=== PATIENT | female | born 1990 | race Caucasian/White ===

== ENCOUNTER 2023-06-07 08:38 | Emergency (ER) | payer OTHER ==
[2023-06-07 08:51] VITALS: BP 114/68; PULSE 78; RESP 17; TEMP 98.4; BMI 24.4
[2023-06-07] MEDS ORDERED: KETOROLAC TROMETHAMINE 30 MG/1 ML VIAL ONE (09:20)
[2023-06-07] MEDS ORDERED: ACETAMINOPHEN 325 MG TABLET (FP) ONE (09:20)
[2023-06-07] MEDS: KETOROLAC TROMETHAMINE 30 MG/1 ML VIAL IM ONE (09:25)
[2023-06-07] MEDS: ACETAMINOPHEN 325 MG TABLET (FP) PO ONE (09:26)
== END 2023-06-07 10:14 | disposition home or self-care (01) ==
LOC: JERFT 08:38
PROC: 3E0233Z Introduction of Anti-inflammatory into Muscle, Percutaneous Approach (ICD-10-PCS; principal; 2023-06-07)
DX: S09.90XA Unspecified injury of head, initial encounter (principal); M54.2 Cervicalgia; W18.2XXA Fall in (into) shower or empty bathtub, initial encounter
CPT/HCPCS: 99284-25

== ENCOUNTER 2023-06-10 20:58 | Emergency (ER) | payer OTHER ==
[2023-06-10 21:05] VITALS: BP 130/73; PULSE 79; RESP 20; TEMP 97.8; BMI 22.4
[2023-06-10] MEDS ORDERED: ACETAMINOPHEN 500 MG TABLET (FP) ONE (22:11)
[2023-06-10] MEDS: ACETAMINOPHEN 500 MG TABLET (FP) PO ONE (22:23)
[2023-06-11] MEDS: IBUPROFEN 600 MG TABLET (FP) PO ONE (00:52)
[2023-06-11] MEDS: LIDOCAINE 4% PATCH TP ONE (00:52)
[2023-06-11] MEDS ORDERED: IBUPROFEN 600 MG TABLET (FP) PO ONE (01:07)
[2023-06-11] MEDS ORDERED: LIDOCAINE 4% PATCH TP ONE (01:07)
[2023-06-11] MEDS ORDERED: LIDOCAINE PATCH REMOVAL MC SCH (22:00)
== END 2023-06-11 01:23 | disposition home or self-care (01) ==
LOC: JER 20:58
DX: S06.0X0A Concussion without loss of consciousness, initial encounter (principal); R68.84 Jaw pain; M54.2 Cervicalgia; W01.198A Fall on same level from slipping, tripping and stumbling with subsequent striking against other object, initial encounter; Y93.E1 Activity, personal bathing and showering
CPT/HCPCS: 70450-TC; 70486-TC; 72125-TC; 84703; 99284-25

== ENCOUNTER 2024-03-04 12:58 | Emergency (ER) | payer OTHER ==
[2024-03-04 13:08] VITALS: BP 121/63; PULSE 86; RESP 19; TEMP 99; BMI 22.8
== END 2024-03-04 15:14 | disposition home or self-care (01) ==
LOC: JERFT 12:58
DX: J10.1 Influenza due to other identified influenza virus with other respiratory manifestations (principal); J06.9 Acute upper respiratory infection, unspecified; R09.81 Nasal congestion; R05.9 Cough, unspecified; R50.9 Fever, unspecified; Z20.822 Contact with and (suspected) exposure to COVID-19
CPT/HCPCS: 0241U-QW; 84703; 99283-25

== ENCOUNTER 2024-10-04 16:42 | Emergency (ER) | payer OTHER ==
[2024-10-04 16:49] VITALS: BP 125/70; PULSE 64; RESP 18; TEMP 98.2; BMI 22.4
== END 2024-10-04 18:03 | disposition home or self-care (01) ==
LOC: JERFT 16:42
DX: M25.561 Pain in right knee (principal); M25.571 Pain in right ankle and joints of right foot; W08.XXXA Fall from other furniture, initial encounter
CPT/HCPCS: 73562-TC-RT-FY; 73610-TC-RT-FY; 99283-25